=== PATIENT | male | born 1965 | race Caucasian/White ===

== ENCOUNTER 2022-03-30 19:10 | Inpatient (IN) | payer OTHER ==
[~2022-03-30] VITALS: Ht 177.8 cm; Wt 88.5 kg
[2022-03-30 19:49] VITALS: BP_SYST 101
[2022-03-30 19:50] LABS: BASOPHILS % (AUTO) 0.3 % (0.0-2.0); EOSINOPHILS % (AUTO) 0.1 % (0.0-4.0); HEMATOCRIT 39.4 % (36-54); HEMOGLOBIN 13.6 g/dL (14.0-18.0); LYMPHOCYTES # (AUTO) 0.5 K/uL (1.0-5.5); LYMPHOCYTES % (AUTO) 8.1 % (20.5-51.5); MEAN CORPUSCULAR HEMOGLOBIN 31 pg (27-31); MEAN CORPUSCULAR HGB CONC 35 % (32-36); MEAN CORPUSCULAR VOLUME 90 fL (79.0-98.0); MONOCYTES # (AUTO) 0.5 K/uL (0.0-1.0); MONOCYTES % (AUTO) 8.9 % (1.7-9.3); NEUTROPHILS % (AUTO) 82.6 % (40.0-70.0); PLATELET COUNT (AUTO) 166 K/uL (130-430); RED BLOOD CELL COUNT(AUTO) 4.36 MIL/uL (4.2-6.2); RED CELL DISTRIBUTION WIDTH 13.5 % (9.0-15.0)
--- NOTE | 2022-03-30 19:55 | NUR ---
Patient triaged and placed in bed 8. MD Morgan notified of need for MSE.Placed on monitor tech. Report given to YOANA Pettit.
--- NOTE | 2022-03-30 19:57 | NUR ---
ER at bedside examining patient.
[2022-03-30 20:10] LABS: ANION GAP 6 (5-15); CALCIUM 9.2 mg/dL (8.4-11.0); CHLORIDE 104 mmol/L (98-107); CREATININE 0.95 mg/dL (0.55-1.30); GLUCOSE 101 mg/dL (70-99); UREA NITROGEN, BLOOD 21 mg/dL (8-21)
[2022-03-30 20:18] LABS: ALANINE AMINOTRANSFERASE 42 U/L (12-78); ALBUMIN 3.6 g/dL (3.4-4.8); ASPARTATE AMINOTRANSFERASE 32 U/L (10-37); TOTAL BILIRUBIN 0.5 mg/dL (0.0-1.0)
[2022-03-30 20:19] LABS: GFR AFRICAN AMERICAN 105 mL/min (>90)
--- NOTE | 2022-03-30 20:56 | NUR ---
Patient arrived to ED 8 via ambulance for c/o breathing difficulty, chest pain, and throwing up since 9 pm and for a couple days. Patient is alert and oriented x4. Able to respond to verbal commands. Patient's vital signs stable. Patient said that it was "time to go to hospital because his troponin levels were elevated." Patient's family at bedside. Will continue to monitor. Call light within reach.
--- NOTE | 2022-03-30 21:04 | NUR ---
Patient arrived to ED 8 from ambulance for c/o shortness of breath, chest pain, throwing up since 9 pm. Patient's family at bedside told YOANA Kim that patient has been having those episodes for a couple days. Patient BP was 101/41 as indicated. Patient has IV on left AC 20G as noted with IV Fluids noted. Will continue to monitor.
[2022-03-30] MEDS ORDERED: ONDANSETRON HCL 4 MG/2 ML VIAL IVP ONE (21:30)
[2022-03-30] MEDS ORDERED: AZITHROMYCIN 500 MG in NS 250 ML IV ONE (21:30)
[2022-03-30] MEDS ORDERED: AZITHROMYCIN 500 MG/VIAL (ZITHROMAX) IV ONE (21:39)
--- NOTE | 2022-03-30 22:22 | NUR ---
Admit bed requested Patient will be admitted to care of Dr. Mendoza. Admitted to Telemetry unit. Diagnosis Chest Pain Inpatient (Yes or No) Yes Observation (Yes or No) No Orientation concerns or request close to nursing station (Yes or No) Yes Covid Status Negative On vent or bipap No Isolation requirements No Needs a sitter No From Home (Yes or if No enter name of facility) Yes Requires Dialysis (Yes or No) No Med Rec Completed (Yes of No) Yes
[2022-03-30] MEDS ORDERED: MUPIROCIN 2% TOPICAL OINTMENT 22 GM NS PRN (23:00)
[2022-03-30] MEDS ORDERED: ZOLPIDEM TARTRATE 5 MG TABLET PO PRN (23:00)
[2022-03-30] MEDS ORDERED: ACETAMINOPHEN 325 MG TABLET PO PRN (23:00)
[2022-03-30] MEDS ORDERED: DOCUSATE SODIUM 100 MG CAPSULE PO PRN (23:00)
[2022-03-30] MEDS ORDERED: NACL 0.9% 1,000 ML IV SCH (23:00)
[2022-03-30] MEDS ORDERED: MORPHINE 2 MG/ML INJ. SYRINGE IVP PRN ×2 (23:00)
[2022-03-30] MEDS ORDERED: ONDANSETRON HCL 4 MG/2 ML VIAL IVP PRN (23:00)
[2022-03-30] MEDS ORDERED: LORazepam 2 MG/ML VIAL IVP PRN (23:00)
[2022-03-30] MEDS ORDERED: POTASSIUM CHLORIDE 20 MEQ TAB.PRT.SR PO PRN (23:00)
[2022-03-30] MEDS ORDERED: MAGNESIUM SULFATE 50 ML IV PRN (23:00)
[2022-03-30] MEDS ORDERED: LIP40 PO (23:49)
[2022-03-30] MEDS ORDERED: FEXO180T94 PO (23:49)
[2022-03-30] MEDS ORDERED: CLOP75TA32 PO (23:49)
[2022-03-30] MEDS ORDERED: FURO-149 PO (23:49)
[2022-03-30] MEDS ORDERED: MONT10TA22 (23:49)
[2022-03-30] MEDS ORDERED: POTA-197 PO (23:49)
[2022-03-30] MEDS ORDERED: ALBU2.5V7 INH (23:49)
[2022-03-30] MEDS ORDERED: FLUT1DIS5 IH (23:49)
[2022-03-30] MEDS ORDERED: DILT30TA36 PO (23:49)
--- NOTE | 2022-03-31 01:20 | NUR ---
Patient resting in bed. All needs met. No distress noted.
--- NOTE | 2022-03-31 02:51 | NUR ---
Patient waiting for bed. Sleeping in room. Vitals stable.
--- NOTE | 2022-03-31 04:01 | NUR ---
Patient resting in bed. Breakfast tray ordered for patient. Placed patient in hospital bed.
[2022-03-31 07:34] LABS: BASOPHILS % (AUTO) 0.4 % (0.0-2.0); EOSINOPHILS % (AUTO) 0.1 % (0.0-4.0); HEMATOCRIT 37.9 % (36-54); HEMOGLOBIN 13.1 g/dL (14.0-18.0); LYMPHOCYTES # (AUTO) 0.7 K/uL (1.0-5.5); LYMPHOCYTES % (AUTO) 8.1 % (20.5-51.5); MEAN CORPUSCULAR HEMOGLOBIN 31 pg (27-31); MEAN CORPUSCULAR HGB CONC 35 % (32-36); MEAN CORPUSCULAR VOLUME 90 fL (79.0-98.0); MONOCYTES # (AUTO) 0.6 K/uL (0.0-1.0); MONOCYTES % (AUTO) 6.1 % (1.7-9.3); NEUTROPHILS # (AUTO) 7.9 K/uL (1.8-7.7); NEUTROPHILS % (AUTO) 85.3 % (40.0-70.0); PLATELET COUNT (AUTO) 179 K/uL (130-430); RED BLOOD CELL COUNT(AUTO) 4.22 MIL/uL (4.2-6.2); RED CELL DISTRIBUTION WIDTH 13.5 % (9.0-15.0); WHITE BLOOD COUNT (AUTO) 9.2 K/uL (4.8-10.8)
[2022-03-31 07:49] LABS: CALCIUM 9.2 mg/dL (8.4-11.0); CREATININE 0.95 mg/dL (0.55-1.30)
[2022-03-31] MEDS ORDERED: guaiFENesin/DEXTROMETHORPHAN 10 ML UDC PO PRN (08:45)
[2022-03-31] MEDS ORDERED: ALBUTEROL SULFATE 0.083% 2.5 MG/3 ML VIAL.NEB INH PRN (08:45)
[2022-03-31 08:51] VITALS: BP_SYST 101
[2022-03-31] MEDS ORDERED: CLOPIDOGREL BISULFATE 75 MG TABLET PO SCH (09:00)
[2022-03-31] MEDS ORDERED: MONTELUKAST 10 MG TABLET PO SCH (09:00)
[2022-03-31] MEDS ORDERED: IPRATROPIUM/ALBUTEROL SULFATE 3 ML AMPUL.NEB (DUONEB) INH PRN (09:00)
[2022-03-31] MEDS ORDERED: ENOXAPARIN SODIUM 40 MG/0.4 ML SYRINGE SUBCUT SCH (09:00)
[2022-03-31] MEDS ORDERED: ATORVASTATIN 20 MG TABLET PO SCH (09:00)
[2022-03-31] MEDS ORDERED: FUROSEMIDE 40 MG TABLET PO SCH (09:00)
--- NOTE | 2022-03-31 09:27 | NUR ---
Patient will be admitted to care of DR SALAS. Admitted to TELE unit. Will go to room 101A. Belongings list completed. Complete and up to date summary report printed. SBAR report to be given at bedside with opportunity for questions.
[2022-03-31 09:49] VITALS: BP_SYST 134
[2022-03-31 10:16] VITALS: BP_SYST 104
[2022-03-31] MEDS: DILTIAZEM HCL 30 MG TABLET PO SCH ×2 (11:34→15:10)
[2022-03-31] MEDS ORDERED: ALBUTEROL SULFATE 0.083% 2.5 MG/3 ML VIAL.NEB INH SCH (13:00)
[2022-03-31] MEDS ORDERED: ASPIRIN 81 MG TABLET(ECOTRIN) PO ONE (14:00)
[2022-03-31] MEDS ORDERED: ISOSORBIDE MONONITRATE 30 MG TAB.ER.24H PO ONE (14:00)
[2022-03-31] MEDS ORDERED: CARVEDILOL 3.125 MG TABLET (COREG) PO ONE (14:00)
--- NOTE | 2022-03-31 17:47 | NUR ---
PATIENT [id number] ARRIVED TO THE HOSPITAL C/O SHORTNESS OF BREATH. PATIENT WAS SEEING BY DR. MCLAUGHLIN AND DECIDED TO SIGN AMA. PATIENT WAS EDUCATED REGARDING HIS DISEASE PROCESS AND RISKS FACTOR. PATIENT STATED THAT HE WILL B GOING TO THE URGENT CARE TOMORROW. PATIENT EXPRESSED UNDERSTANDING OF THE EDUCATION AND FAMILY MEMBER AT BED SIDE WAS ALSO EDUCATED. DESPITE TEACHING, VLAD SIGNED AMA. THE NURSE IN CHARGE, SECURITY AND MAD AWARE.
[2022-03-31] MEDS ORDERED: BUDESONIDE 0.5 MG/2 ML AMPUL.NEB INH SCH (19:00)
[2022-03-31] MEDS ORDERED: CARVEDILOL 3.125 MG TABLET (COREG) PO SCH (21:00)
[2022-04-01] MEDS ORDERED: ISOSORBIDE MONONITRATE 30 MG TAB.ER.24H PO SCH (09:00)
[2022-04-01] MEDS ORDERED: ASPIRIN 81 MG TABLET(ECOTRIN) PO SCH (09:00)
== END 2022-03-31 17:47 | disposition left against medical advice (07) | DRG 280 ==
LOC: SED 19:10 → STU 03-31 07:29
PROVIDERS: ADMIT General Practice; ATTEND General Practice
DX: I11.0 Hypertensive heart disease with heart failure (principal); I21.A1 Myocardial infarction type 2; I50.43 Acute on chronic combined systolic (congestive) and diastolic (congestive) heart failure; J18.9 Pneumonia, unspecified organism; J44.0 Chronic obstructive pulmonary disease with (acute) lower respiratory infection; Z20.822 Contact with and (suspected) exposure to COVID-19; B34.9 Viral infection, unspecified; E78.5 Hyperlipidemia, unspecified; I25.10 Atherosclerotic heart disease of native coronary artery without angina pectoris; I48.91 Unspecified atrial fibrillation; Z79.899 Other long term (current) drug therapy; Z79.82 Long term (current) use of aspirin
CPT/HCPCS: 36415; 71045; 80048; 80053; 80061; 83036; 83735; 83880; 84443; 84484; 85025; 93005; 93306; 94640; 94760; 96365; 96375; 99291; G0378; J0456; J2405; J7613